=== PATIENT | female | born 1950 | race Two or more races ===

== ENCOUNTER → 2017-10-15 | Outpatient (CLI) | payer OTHER, BC | END | disposition home or self-care (01) | LOC: TOM 08:48 | DX: D28.0 Benign neoplasm of vulva (principal) ==

== ENCOUNTER → 2017-10-15 | Outpatient (CLI) | payer OTHER, BC | END | disposition home or self-care (01) | LOC: RAD 09:10 | DX: I10 Essential (primary) hypertension (principal); D28.0 Benign neoplasm of vulva ==

== ENCOUNTER → 2017-10-28 15:53 | Outpatient (CLI) | payer OTHER, BC | END | disposition home or self-care (01) | LOC: EKG 15:53 | DX: I10 Essential (primary) hypertension (principal) ==

== ENCOUNTER 2017-11-10 06:20 | Day surgery (SDC) | payer OTHER, BC | END 2017-11-10 17:25 | disposition home or self-care (01) | LOC: CIR.AMB 06:20 | DX: D28.0 Benign neoplasm of vulva (principal) ==